=== PATIENT | male | born 1975 | race Caucasian/White ===

== ENCOUNTER → 2017-10-04 | Outpatient (CLI) | payer OTHER ==
[~2017-10-04] MED LIST: ATOR10TA24 PO; LISI-362 PO; LOR5/325 PO; NO MEDS
== END ==
LOC: LAB 10:57
PROVIDERS: ATTEND Nurse Practitioner Family
DX: I10 Essential (primary) hypertension (principal)
CPT/HCPCS: 36415; 82310; 82374; 82435; 82565; 82947; 84132; 84295; 84520

== ENCOUNTER → 2019-03-12 | Outpatient (CLI) | payer OTHER ==
--- NOTE | 2019-03-12 11:21 | RADIOLOGY IMAGING REPORT ---
FACILITY: PATIENT NAME: Lance Davis : 1975 MR: [id number] V: [id number] EXAM DATE: ORDERING PHYSICIAN: ARIANNA HAIDER TECHNOLOGIST: Location: [facility] Patient: Lance Davis : 1975 Visit/Account:[id number] Date of Sevice: 03/12/2019 2 VIEWS CHEST INDICATION: Were COMPARISON: August 28, 2016 FINDINGS: Cardiomediastinal silhouette: Heart size within normal limits. Lungs: There is no focal infiltrate or lobar consolidation. There is no pneumothorax or pleural effusion. Bones and soft tissues: Surgical changes to the shoulders IMPRESSION: 1. Stable chest Report Dictated By: David Hutchinson MD at 03/12/2019 11:12 AM Report E-Signed By: David Hutchinson MD at 03/12/2019 11:13 AM [id number]
== END ==
LOC: RAD 09:43
PROVIDERS: ATTEND Family Medicine
DX: Z02.89 Encounter for other administrative examinations (principal)
CPT/HCPCS: 71046